=== PATIENT | male | born 1960 | race Asian ===

== ENCOUNTER → 2021-10-15 | Outpatient (CLI) | payer OTHER ==
[~2021-10-15] MED LIST: ASPI-1450 PO; ATOR40TA28 PO; BACL20TA PO; CARV3 PO; LOSA-381 PO; TICA90TA PO
== END | disposition home or self-care (01) ==
LOC: RADPV 09:54
PROVIDERS: ATTEND Internal Medicine
DX: I70.213 Atherosclerosis of native arteries of extremities with intermittent claudication, bilateral legs (principal)
CPT/HCPCS: 93925

== ENCOUNTER → 2021-12-08 | Outpatient (CLI) | payer OTHER ==
[~2021-12-08] VITALS: Ht 167.6 cm; Wt 61.1 kg
[2021-12-08 11:15] VITALS: BP 125/80
== END | disposition home or self-care (01) ==
LOC: SRCNTR 10:39
PROVIDERS: ATTEND Internal Medicine
DX: I10 Essential (primary) hypertension (principal); C18.9 Malignant neoplasm of colon, unspecified; I21.4 Non-ST elevation (NSTEMI) myocardial infarction; Z87.891 Personal history of nicotine dependence
CPT/HCPCS: G0463